=== PATIENT | female | born 1980 | race Caucasian/White ===

== ENCOUNTER 2017-04-22 08:00 | Emergency (ER) | payer OTHER ==
[~2017-04-22] VITALS: Ht 152.4 cm; Wt 81.8 kg
[~2017-04-22 08:00] MED LIST: /QUET10TA OR; AMOX500C OR; MOTR200T44 PO; NEUR300C OR; SERO400T OR; SUBO8MIS SL; prenatal vitamin PO
[2017-04-22 08:08] VITALS: BP 121/79
[2017-04-22] MEDS ORDERED: BUPR10TASR PO (08:13)
[2017-04-22] MEDS ORDERED: ZOLO100T PO (08:13)
[2017-04-22 09:32] LABS: BASO % 0.4 % (0.0-1.0); EOS # 0.1 10^3/uL (0.0-0.50); EOS % 1.1 % (0.0-3.0); IMMATURE GRANULOCYTE % 0.3 % (0-0); LYMPH # 1.5 10^3/uL (1.5-4.5); LYMPH % 18.8 % (24.0-44.0); MEAN CORPUSCULAR HEMOGLOBIN 27.3 pg (27.0-33.0); MEAN CORPUSCULAR HGB CONC 33.1 g/dl (32.0-36.5); MEAN CORPUSCULAR VOLUME 82.4 fl (80.0-96.0); MONO # 0.5 10^3/uL (0.0-0.8); MONO % 5.9 % (0.0-5.0); NEUTROPHILS # 5.8 10^3/uL (1.8-7.7); NEUTROPHILS % 73.5 % (36.0-66.0); PLATELET COUNT, AUTOMATED 219 10^3/uL (150-450); RED CELL DISTRIBUTION WIDTH 13.2 % (11.5-14.5); WHITE BLOOD COUNT 7.9 10^3/uL (4.0-10.0)
[2017-04-22 09:55] LABS: CONTROL LINE HCG INT CTR LINE PRESENT
[2017-04-22 09:59] LABS: ANION GAP 4 MEQ/L (8-16); BLOOD UREA NITROGEN 17 MG/DL (7-18); CALCIUM LEVEL 9.3 MG/DL (8.5-10.1); CARBON DIOXIDE LEVEL 30 MEQ/L (21-32); CHLORIDE LEVEL 101 MEQ/L (98-107); CREATININE FOR GFR 0.81 MG/DL (0.55-1.02); GLOMERULAR FILTRATION RATE > 60.0 (>60); GLUCOSE, FASTING 86 MG/DL (70-105); POTASSIUM SERUM 4.2 MEQ/L (3.5-5.1); SODIUM LEVEL 135 MEQ/L (136-145)
--- NOTE | 2017-04-22 10:03 | REP ---
Pelvic sonography: History: Heavy vaginal bleeding. Findings: Transabdominal scanning is performed. Uterine dimensions are normal at 8.0 x 6.2 x 4.3 cm. Endometrial echo is 0.4 cm thick. Uterus is anteverted. No focal uterine mass is seen. The right ovary is normal measuring 2.0 x 1.8 x 1.9 cm. Left ovary dimensions of 3.3 x 2.6 x 3.3 cm. Left ovary contains a 2.5 x 2.8 x 1.9 cm cyst. Normal Doppler flow is seen to both ovaries. Impression: 2.8 cm unilocular cyst left ovary. No other abnormality. Signed by Scott Billings MD 04/22/2017 02:11 P
== END 2017-04-22 10:22 | disposition home or self-care (01) ==
LOC: M ED 08:00
DX: N83.292 Other ovarian cyst, left side (principal); N93.9 Abnormal uterine and vaginal bleeding, unspecified; M54.5 Low back pain; F41.9 Anxiety disorder, unspecified; D64.9 Anemia, unspecified; Z79.899 Other long term (current) drug therapy; Z88.5 Allergy status to narcotic agent; Z91.018 Allergy to other foods

== ENCOUNTER 2020-08-25 14:31 | Emergency (ER) | payer OTHER ==
[~2020-08-25] VITALS: Ht 152.4 cm; Wt 72.7 kg
[~2020-08-25 14:31] MED LIST changes: -/QUET10TA OR; +BUPR10TASR PO; +SERO1TAB OR; +ZOLO100T PO
--- OUTSIDE RECORDS SUMMARY | 2020-08-25 14:37 | CCD ---
Author Author [facility] Organization [facility] Address Unknown Phone Unavailable Support Name Relationship Address Phone CLAY SHELTON [place] [address] UNEMPLOYED Next Of Kin Unknown UE Next Of Kin Unknown Unavailable SUSAN BENDER Next Of Kin [address] [facility] [facility] [address] [place] [address] Re-disclosure Warning The records that you are about to access may contain information from federally-assisted alcohol or drug abuse programs. If such information is present, then the following federally mandated warning applies: This information has been disclosed to you from records protected by federal confidentiality rules (42 CFR part 2). The federal rules prohibit you from making any further disclosure of this information unless further disclosure is expressly permitted by the written consent of the person to whom it pertains or as otherwise permitted by 42 CFR part 2. A general authorization for the release of medical or other information is NOT sufficient for this purpose. The Federal rules restrict any use of the information to criminally investigate or prosecute any alcohol or drug abuse patient.The records that you are about to access may contain highly sensitive health information, the redisclosure of which is protected by Article 27-F of the [facility] Public Health law. If you continue you may have access to information: Regarding HIV / AIDS; Provided by facilities licensed or operated by the [facility] Office of Mental Health; or Provided by the [facility] Office for People With Developmental Disabilities. If such information is present, then the following [facility] mandated warning applies: This information has been disclosed to you from confidential records which are protected by state law. State law prohibits you from making any further disclosure of this information without the specific written consent of the person to whom it pertains, or as otherwise permitted by law. Any unauthorized further disclosure in violation of state law may result in a fine or retirement sentence or both. A general authorization for the release of medical or other information is NOT sufficient authorization for further disc losure. Family History Family Member Name Family Member Gender Family Member Status Date o f Status Description Data Source(s) Unknown Female Problem [facility] ([facility]) Medications Medication Brand Name Start Date Product Form Dose Route Admi nistrative Instructions Pharmacy Instructions Status Indications Reaction Description Data Source(s) [id number] mg 08/11/2019 12:00:00 AM EST tablet 20 TAKE ONE TABLET BY MOUTH TWO TIMES A DAY FOR 10 DAYS TAKE ONE TABLET BY MOUTH TWO TIMES A DAY FOR 10 DAYS SOLD: 08/11/2019 [facility] 2 % 08/11/2019 12:00:00 AM EST ointment 22 APPLY TO AFFECTED AREA(S) THREE TIMES A DAY FOR 5 DAYS APPLY TO AFFECTED AREA(S) THREE TIMES A DAY FOR 5 DAYS SOLD: 08/11/2019 [facility] Insurance Providers Payer name Policy type / Coverage type Policy ID Covered green party ID Covered green party's relationship to sanchez Policy Sanchez Plan Information [facility] [id number] SP [id number] [facility]) O [id number] S [id number] [facility] [id number] SP [id number] [facility] Community Plan Commercial Self [facility] [id number] SP [id number] [facility] [id number] SP [id number] [facility]) O [id number] S [id number] [facility] [id number] SP [id number] MEDICAID [id number] SP [id number] MEDICAID [id number] SP [id number] [facility] [id number] SP [id number] [facility] [id number] SP [id number] [facility]) O [id number] S [id number] [facility] I [id number] Self [id number] [employer] [id number] SP [id number] O BLUE [id number] SP [id number]
--- OUTSIDE RECORDS SUMMARY | 2020-08-25 15:27 | CCD ---
Author Author [facility] Organization [facility] Address Unknown Phone Unavailable Support Name Relationship Address Phone CLAY SHELTON [place] [address] UNEMPLOYED Next Of Kin Unknown UE Next Of Kin Unknown Unavailable SUSAN BENDER Next Of Kin [address] [facility] [address] [place] [address] Re-disclosure Warning The records that you are [...] is protected by Article 27-F of the [facility] Public Health law. If you continue you may have access to information: Regarding HIV / AIDS; Provided by facilities licensed or operated by the [facility] Office of Mental Health; or Provided by the [facility] Office for People With Developmental Disabilities. If such information is present, then the following [facility] mandated warning applies: This information has [...] law may result in a fine or alf sentence or both. A general authorization for [...] A DAY FOR 10 DAYS SOLD: 08/11/2019 [facility] 2 % 08/11/2019 12:00:00 AM EST ointment 22 APPLY TO AFFECTED AREA(S) THREE TIMES A DAY FOR 5 DAYS APPLY TO AFFECTED AREA(S) THREE TIMES A DAY FOR 5 DAYS SOLD: 08/11/2019 [facility] Insurance Providers Payer name Policy type / Coverage type Policy ID Covered alliance party ID Covered alliance party's relationship to sanchez Policy Sanchez Plan Information [facility] [id number] SP [id number] [facility]) O [id number] S [id number] [facility] [id number] SP [id number] [facility] Community Plan Commercial Self [facility] [id number] SP [id number] [facility] [id number] SP [id number] [facility]) O [id number] S [id number] [facility] [id number] SP [id number] MEDICAID [id number] SP [id number] MEDICAID [id number] SP [id number] [facility] [id number] SP [id number] [facility] [id number] SP [id number] [facility]) O [id number] S [id number] [facility] I [id number] Self [id number] [employer] [id number] SP [id number] O BLUE [id number] SP [id number]
[2020-08-25] MEDS ORDERED: ONDANSETRON 4MG/2ML VIAL IV ONE (16:30)
[2020-08-25] MEDS ORDERED: KETOROLAC 30 MG/ML 1ML VIAL IV ONE (16:30)
[2020-08-25] MEDS ORDERED: NS 500 ML IV ONE (16:30)
[2020-08-25] MEDS ORDERED: diazePAM 5MG TABLET PO ONE ×2 (16:30→22:15)
[2020-08-25 18:18] LABS: BASO % 0.2 % (0.0-1.0); EOS % 0.3 % (0.0-3.0); HEMATOCRIT 30.7 % (36.0-47.0); HEMOGLOBIN 9.6 g/dl (12.0-15.5); LYMPH # 0.7 10^3/uL (1.5-5.0); LYMPH % 7.4 % (24.0-44.0); MEAN CORPUSCULAR HEMOGLOBIN 26.4 pg (27.0-33.0); MEAN CORPUSCULAR HGB CONC 31.3 g/dl (32.0-36.5); MEAN CORPUSCULAR VOLUME 84.3 fl (80.0-96.0); MONO # 0.7 10^3/uL (0.0-0.8); MONO % 7.2 % (2.0-8.0); NEUTROPHILS # 8.5 10^3/uL (1.5-8.5); NEUTROPHILS % 84.2 % (36.0-66.0); PLATELET COUNT, AUTOMATED 289 10^3/uL (150-450); RED BLOOD COUNT 3.64 10^6/uL (4.00-5.40)
[2020-08-25 18:29] LABS: INR 1.12; PARTIAL THROMBOPLASTIN TIME 39.6 SECONDS (24.2-38.5); PROTHROMBIN TIME 14.7 SECONDS (12.5-14.3)
[2020-08-25 18:44] LABS: ALBUMIN 2.6 GM/DL (3.2-5.2); ALT/SGPT 53 U/L (12-78); BILIRUBIN,DIRECT 0.4 MG/DL (0.0-0.2); BILIRUBIN,TOTAL 0.6 MG/DL (0.2-1.0); CPK CREATINE PHOSPHOKINASE 58 U/L (26-192); LIPASE 58 U/L (73-393); MB/CK RELATIVE INDEX 3.45 (< OR =4); TOTAL PROTEIN 7.4 GM/DL (6.4-8.2); TROPONIN I < 0.02 NG/ML (< 0.10)
[2020-08-25 19:06] LABS: BLOOD UREA NITROGEN 14 MG/DL (7-18); CARBON DIOXIDE LEVEL 26 MEQ/L (21-32); CHLORIDE LEVEL 101 MEQ/L (98-107); CREATININE FOR GFR 0.58 MG/DL (0.55-1.30); GLOMERULAR FILTRATION RATE > 60.0 (>58); GLUCOSE, FASTING 84 MG/DL (70-100); POTASSIUM SERUM 3.8 MEQ/L (3.5-5.1); SODIUM LEVEL 137 MEQ/L (136-145)
[2020-08-25] MEDS ORDERED: ISOVUE-370 76% 100ML VIAL As Ordered ONE (19:10)
[2020-08-25 19:22] LABS: HCG, SERUM QUALITATIVE NEGATIVE (NEGATIVE)
--- NOTE | 2020-08-25 20:05 | REPVR ---
PROCEDURE INFORMATION: Exam: CT Abdomen And Pelvis With Contrast Exam date and time: 08/25/2020 7:24 PM Age: 40 years old Clinical indication: Abdominal pain; Other: B/l flank, low abd pain; Additional info: Lemuel flank/lower abd pain TECHNIQUE: Imaging protocol: Computed tomography of the abdomen and pelvis with contrast. Radiation optimization: All CT scans at this facility use at least one of these dose optimization techniques: automated exposure control; mA and/or kV adjustment per patient size (includes targeted exams where dose is matched to clinical indication); or iterative reconstruction. Contrast material: ISOVUE 370; Contrast volume: 100 ml; Contrast route: INTRAVENOUS (IV); COMPARISON: US PELVIC NON-OB COMPLETE 04/22/2017 9:05 AM FINDINGS: Lungs: There is discoid atelectasis at the right lung base. Heart: Normal-sized heart. Liver: There is enlargement of the liver. Gallbladder and bile ducts: Normal common bile duct. The gallbladder is contracted. There is subtle hazy increased density along the margins of the gallbladder and if there is any concern for cholecystitis suggest correlation with a HIDA scan or ultrasound after fasting. Pancreas: Normal pancreas. Spleen: There is mild enlargement of the spleen. Adrenal glands: Normal. No mass. Kidneys and ureters: There is opacification of both kidneys and no evidence of hydronephrosis. Stomach and bowel: The cecum is in the right pelvis and there is no evidence of inflammation in the region of the cecum. There is a massive amount of solid stool throughout the colon and consistent with very severe constipation. Intraperitoneal space: There is no evidence of pneumoperitoneum. There is a small amount of free fluid in the pelvis. Vasculature: There is opacification of the aorta which appears normal in size. There is opacification of the SMV and the SMA. Lymph nodes: There is no evidence of lymphadenopathy. Urinary bladder: Normal urinary bladder. Reproductive: Normal uterus. There is a 2.2 cm cyst of the left ovary probably a functional cyst. Bones/joints: There is marked sclerosis and facet hypertrophy L5-S1 on the left. There are congenitally short pedicles and the spinal canal is at the lower limits of normal in size. Soft tissues: There is no evidence of soft tissue abnormality. IMPRESSION: 1. Massive amount of solid stool throughout the colon consistent with very severe constipation. 2. Moderate hepatomegaly and mild splenomegaly. 3. Probably contracted gallbladder but slightly ill defined margin. There is any concern of cholecystitis recommend HIDA scan are fasting ultrasound. Electronically signed by: Feliciano Nicolas On 08/25/2020 20:05:45 PM
[2020-08-25 20:24] LABS: AMPHETAMINES LEVEL URINE POSITIVE (NEGATIVE); BARBITURATES URINE NEGATIVE (NEGATIVE); BENZODIAZEPINES URINE NEGATIVE (NEGATIVE); CANNABINOIDS URINE NEGATIVE (NEGATIVE); COCAINE METABOLITE URINE POSITIVE (NEGATIVE); METHADONE URINE NEGATIVE (NEGATIVE); OPIATES URINE POSITIVE (NEGATIVE); PHENCYCLIDINE URINE NEGATIVE (NEGATIVE)
[2020-08-25] MEDS ORDERED: cefTRIAXone SOD 1 GM in D5W MINI-BAG PLUS 50 ML IV ONE (23:00)
[2020-08-26] MEDS ORDERED: LORazepam 2 MG/ML VIAL IV STA (00:22)
[2020-08-26] MEDS ORDERED: LIDOCAINE 5% (LIDODERM) PATCH TD ONE (01:45)
[2020-08-26 02:19] LABS: RSV AMPLIFICATION NEGATIVE (NEGATIVE)
[2020-08-26] MEDS ORDERED: MORPHINE 4 MG/ML 1ML VIAL/SYRINGE (J2270) IV ONE (02:30)
[2020-08-26] MEDS ORDERED: PROHANCE 279.3MG/ML 15ML VIAL As Ordered ONE (02:57)
--- NOTE | 2020-08-26 04:21 | REPVR ---
PROCEDURE INFORMATION: Exam: MR Lumbar Spine Without and With Contrast. Exam date and time: 08/26/2020 11:58 PM Age: 40 years old Clinical indication: Low back pain; Additional info: Back pain/urinary retention HX abscess/mrsa TECHNIQUE: Imaging protocol: Multiplanar magnetic resonance images of the lumbar spine without and with intravenous contrast. Contrast material: PROHANCE; Contrast volume: 15 ml; Contrast route: INTRAVENOUS (IV); COMPARISON: No relevant prior studies available. FINDINGS: Vertebrae: Marrow edema is identified involving posterior elements at the L5 vertebral level, right side greater than left. Bilateral facet arthropathy is identified at this level. This marrow edema can be reactive to arthropathy, although osteomyelitis is also within the differential. The lumbar vertebral bodies are normal in height, without abnormal subluxation. Spinal epidural space: Posterior epidural enhancement is identified diffusely within the lumbar and upper sacral spine. A posterior epidural fluid collection is visualized extending from L3 to L4, consistent with an epidural abscess in the appropriate clinical setting. This fluid collection measures 1.9 x 1.0 x 2.4 cm. A small amount of fluid is identified within the right facet joint at L3-L4, contiguous of the posterior epidural fluid collection and concerning for septic arthritis. Osseous erosive changes are identified at this joint, with minimal marrow edema. An adjacent right posterior paraspinal loculated collection of fluid is identified, also concerning for abscess. This measures 2.5 x 2.2 x 3.7 cm. There is surrounding paraspinal muscle swelling. Spinal cord: The distal end of the conus medullaris ends at L1, normal in position. L1-L2: Mild facet arthropathy. No significant spinal canal stenosis or neural foraminal narrowing. L2-L3: Bilateral facet arthropathy with hypertrophy of the ligamentum flavum. There is moderate narrowing of the thecal sac, contributed by posterior epidural pathology. Mild left neural foraminal narrowing. There is abnormal enhancement within the neural foramina. L3-L4: Severe narrowing of the thecal sac. The AP dimension of the thecal sac measures 0.4 cm. There is abnormal enhancement within the neural foramina bilaterally. Mild bilateral neural foraminal narrowing is visualized. L4-L5: Bilateral facet arthropathy with hypertrophy of the ligamentum flavum. Moderate narrowing of the thecal sac, contributed by posterior epidural pathology. There is abnormal enhancement within the neural foramina. Mild bilateral neural foraminal narrowing. L5-S1: Bilateral facet arthropathy. Minimal narrowing of the thecal sac visualized. [id number] left and mild right neural foraminal narrowing. Enhancement is seen within the bilateral facets. Soft tissues: Additional muscle edema is identified involving the right psoas and quadratus lumborum muscles. There is significant swelling of the soft tissues posterior to the lumbar spine. IMPRESSION: 1. Posterior epidural enhancement is identified diffusely within the lumbar and upper sacral spine. A posterior epidural fluid collection is visualized extending from L3 to L4, consistent with an epidural abscess in the appropriate clinical setting. This fluid collection measures 1.9 x 1.0 x 2.4 cm. 2. A small amount of fluid is identified within the right facet joint at L3-L4, contiguous of the posterior epidural fluid collection and concerning for septic arthritis. An adjacent right posterior paraspinal loculated collection of fluid is identified, also concerning for abscess. There is surrounding paraspinal muscle swelling. 3. Marrow edema is identified involving posterior elements at the L5 vertebral level, right side greater than left. This marrow edema can be reactive to arthropathy, although osteomyelitis is also within the differential. 4. Additional muscle edema is identified involving the right psoas and quadratus lumborum muscles. There is significant swelling of the soft tissues posterior to the lumbar spine. 5. Degenerative changes are identified diffusely within the lumbar spine, as described above. 6. Severe narrowing of the thecal sac is identified at L3-L4, with moderate narrowing of the thecal sac at L2-L3 and L4-L5. Minimal narrowing of the thecal sac at L5-S1. These findings are contributed by posterior epidural pathology. 7. Neural foraminal narrowing noted at the above-mentioned lumbar levels. Electronically signed by: Moreno Titus On 08/26/2020 04:21:36 AM
[2020-08-26] MEDS ORDERED: MORPHINE 4 MG/ML 1ML VIAL/SYRINGE (J2270) IV PRN (05:30)
[2020-08-26] MEDS ORDERED: NS 1,000 ML IV SCH (05:30)
[2020-08-26 07:37] VITALS: BP 112/57
[2020-08-26] MEDS ORDERED: **NOTE PATIENT COMMENT** MISC XX ONE (13:45)
== END 2020-08-26 07:40 | disposition short-term general hospital (02) ==
LOC: M ED 14:31 → EEVIPCON 14:31 → M ED 08-26 07:40
DX: G06.2 Extradural and subdural abscess, unspecified (principal); M46.56 Other infective spondylopathies, lumbar region; M48.061 Spinal stenosis, lumbar region without neurogenic claudication; R16.2 Hepatomegaly with splenomegaly, not elsewhere classified; N83.202 Unspecified ovarian cyst, left side; K59.00 Constipation, unspecified; R56.9 Unspecified convulsions; F33.9 Major depressive disorder, recurrent, unspecified; F41.9 Anxiety disorder, unspecified; F11.10 Opioid abuse, uncomplicated; Z88.6 Allergy status to analgesic agent
CPT/HCPCS: 36415; 51702; 72158; 74177; 80048; 80076; 80307; 81001; 82550; 82553; 83605; 83690; 84703; 85025; 85610; 85730; 86140; 87040; 87077; 87088; 87186; 87631; 96361; 96365; 96366; 96375; 96376; 99285; A9576; J0696; J1885; J2060; J2270; J2405; Q9967

== ENCOUNTER → 2021-07-09 | Outpatient (CLI) | payer MEDICAID | LOC: M OUTALCOH 08:16 | PROVIDERS: ATTEND Psychiatry & Neurology Psychiatry | DX: F10.10 Alcohol abuse, uncomplicated (principal) ==